=== PATIENT | male | born 1985 | race African-American/Black ===

== ENCOUNTER 2024-10-09 12:45 | Emergency (ER) | payer OTHER ==
[~2024-10-09] VITALS: Ht 170.2 cm; Wt 160.0 kg
[2024-10-09 13:07] VITALS: O2SAT 97
[2024-10-09 15:36] VITALS: BP 155/80; PULSE 60; RESP 16; TEMP 36.7; O2SAT 97
== END 2024-10-09 15:41 | disposition home or self-care (01) ==
LOC: ER 12:45
DX: L03.011 Cellulitis of right finger (principal)
CPT/HCPCS: 10060; 99282; Z7610 ×3